=== PATIENT | male | born 1975 | race Caucasian/White ===

== ENCOUNTER 2023-11-28 13:20 | Inpatient (IN) | payer OTHER ==
[2023-11-28 13:49] VITALS: BMI 27.9
[2023-11-28] MEDS ORDERED: NALOXONE HCL (KLOXXADO) 8 MG SPRAY NS PRN (13:59)
[2023-11-28] MEDS ORDERED: MAGNESIUM HYDROX 2400MG/30ML ORAL SUSPENSION 30 ML CUP PO PRN (13:59)
[2023-11-28] MEDS ORDERED: DICYCLOMINE HCL 10 MG CAPSULE PO PRN (13:59)
[2023-11-28] MEDS ORDERED: BENZOCAINE/MENTHOL (CHLORASEPTIC ) LOZENGE MM PRN (13:59)
[2023-11-28] MEDS ORDERED: BENZONATATE 200 MG CAPSULE PO PRN (13:59)
[2023-11-28] MEDS ORDERED: LOPERAMIDE HCL 2 MG CAPSULE PO PRN (13:59)
[2023-11-28] MEDS ORDERED: IBUPROFEN 400 MG TABLET (FP) PO PRN (13:59)
[2023-11-28] MEDS ORDERED: POLYETHYLENE GLYCOL (HEALTHYLAX) 3350 17 GM PACKET PO PRN (13:59)
[2023-11-28] MEDS ORDERED: guaiFENesin 600 MG TABLET.ER (FP) PO PRN (13:59)
[2023-11-28] MEDS ORDERED: NALOXONE HCL 0.4 MG/ML VIAL IM PRN (13:59)
[2023-11-28] MEDS ORDERED: chlordiazePOXIDE HCL 25 MG CAPSULE PO PRN (13:59)
[2023-11-28] MEDS ORDERED: MAG HYDROX/AL HYDROX/SIMETH 30 ML UNIT-DOSE CUP PO PRN (13:59)
[2023-11-28] MEDS ORDERED: BISMUTH SUBSALICYLATE 262 MG/15 ML BTL PO PRN (13:59)
[2023-11-28] MEDS ORDERED: ACETAMINOPHEN 325 MG TABLET (FP) PO PRN (13:59)
[2023-11-28] MEDS: ONDANSETRON *ODT* 4 MG TABLET SL PRN (14:05)
[2023-11-28] MEDS ORDERED: chlordiazePOXIDE HCL 25 MG CAPSULE ONE (15:33)
[2023-11-28] MEDS ORDERED: PRENATAL VITAMINS W/ FOLIC ACID TABLET (FP) PO ONE (15:33)
[2023-11-28] MEDS: chlordiazePOXIDE HCL 25 MG CAPSULE PO ONE (15:34)
[2023-11-28] MEDS: NICOTINE 21 MG/24 HOURS TOPICAL PATCH TD SCH (15:34)
[2023-11-28] MEDS ORDERED: NICOTINE 21 MG/24 HOURS TOPICAL PATCH ONE (15:34)
[2023-11-28] MEDS: PRENATAL VITAMINS W/ FOLIC ACID TABLET (FP) PO SCH (15:34)
[2023-11-28] MEDS: hydrOXYzine PAMOATE 25 MG CAPSULE (FP) PO PRN (16:27)
[2023-11-28] MEDS: METOPROLOL TARTRATE 50 MG TABLET (FP) PO ONE ×2 (17:23→19:34)
[2023-11-28] MEDS: chlordiazePOXIDE HCL 25 MG CAPSULE PO SCH (17:23)
[2023-11-28] MEDS: GABAPENTIN 300 MG CAPSULE PO SCH (22:21)
[2023-11-28] MEDS: THIAMINE 100 MG TABLET PO SCH (22:21)
[2023-11-28] MEDS: MELATONIN 5 MG TABLETS PO SCH (22:21)
[2023-11-28] MEDS ORDERED: SENNOSIDES 8.6MG TABLET (FP) PO SCH (22:40)
[2023-11-28] MEDS: SENNOSIDES 8.6MG TABLET (FP) PO SCH ×2 (22:50→23:05)
[2023-11-29] MEDS ORDERED: MULTIVITAMIN PO SCH (10:00)
[2023-11-29] MEDS: POLYETHYLENE GLYCOL (HEALTHYLAX) 3350 17 GM PACKET PO SCH (10:13)
[2023-11-29] MEDS: FLUoxetine HCL 20 MG CAPSULE PO SCH (11:29)
[2023-11-29] MEDS: METHOCARBAMOL 500 MG TABLET PO PRN (13:34)
[2023-11-30] MEDS: chlordiazePOXIDE HCL 25 MG CAPSULE PO SCH (05:59)
[2023-11-30 10:44] LABS: HEMATOCRIT 40.2 % (35.4-49); HEMOGLOBIN 13.5 GM/dL (11.7-16.9); MCH 31.2 pg (25.7-33.7); MCHC 33.6 g/dl (32.0-35.9); MEAN CELL VOLUME 92.9 fl (80-96); MEAN PLT VOLUME 7.3 fl (7.5-11.1); PLATELET COUNT 161 10^3/uL (134-434); RBC 4.32 M/mm3 (4.00-5.60); RDW 14.4 % (11.9-15.9); WHITE BLOOD COUNT 4.4 K/mm3 (4.0-10.0)
[2023-11-30 10:53] LABS: CHLORIDE 104 mmol/L (98-107); SODIUM 138 mmol/L (136-145)
[2023-11-30 11:03] LABS: ALBUMIN 3.2 g/dl (3.4-5.0); ANION GAP 6 mmol/L (4-13); BLOOD UREA NITROGEN 14.7 mg/dL (7-18); CALCIUM 8.8 mg/dL (8.5-10.1); CO2 29 mmol/L (21-32); GLUCOSE,RANDOM 117 mg/dL (74-106)
[2023-11-30 11:06] LABS: SGOT/AST 36 U/L (15-37); SGPT/ALT 40 U/L (13-61)
[2023-11-30 11:07] LABS: CREATININE 0.8 mg/dL (0.55-1.3)
[2023-11-30 11:08] LABS: BILIRUBIN,TOTAL 0.9 mg/dL (0.2-1); TOT PROT 5.9 g/dl (6.4-8.2)
[2023-11-30 11:09] LABS: ALK PHOS 96 U/L (45-117)
[2023-11-30] MEDS: IBUPROFEN 600 MG TABLET (FP) PO PRN (17:19)
[2023-12-01] MEDS ORDERED: chlordiazePOXIDE HCL 10 MG CAPSULE PO PRN
[2023-12-01] MEDS: chlordiazePOXIDE HCL 10 MG CAPSULE PO SCH (06:06)
[2023-12-02] MEDS: chlordiazePOXIDE HCL 10 MG CAPSULE PO SCH (05:34)
[2023-12-02] MEDS: LACTULOSE 20 GM/30 ML UDC (FOR ORAL USE ONLY) PO SCH (13:46)
[2023-12-03] MEDS: chlordiazePOXIDE HCL 10 MG CAPSULE PO ONE (05:43)
[2023-12-03 09:55] VITALS: BP 132/76; PULSE 99; RESP 18; TEMP 96.9
== END 2023-12-03 11:20 | disposition other institution (70) | DRG 775 ==
LOC: YASAS 13:20 → Y6N 14:23
PROVIDERS: ADMIT Allergy & Immunology; ATTEND Surgery
PROC: HZ2ZZZZ Detoxification Services for Substance Abuse Treatment (ICD-10-PCS; principal; 2023-11-28)
DX: F10.230 Alcohol dependence with withdrawal, uncomplicated (principal); F12.20 Cannabis dependence, uncomplicated; F17.210 Nicotine dependence, cigarettes, uncomplicated; F10.280 Alcohol dependence with alcohol-induced anxiety disorder; F10.282 Alcohol dependence with alcohol-induced sleep disorder; F10.24 Alcohol dependence with alcohol-induced mood disorder; F41.1 Generalized anxiety disorder; F32.A Depression, unspecified; F43.10 Post-traumatic stress disorder, unspecified; G62.9 Polyneuropathy, unspecified; I10 Essential (primary) hypertension; M17.0 Bilateral primary osteoarthritis of knee; M19.011 Primary osteoarthritis, right shoulder; M19.012 Primary osteoarthritis, left shoulder; Z62.810 Personal history of physical and sexual abuse in childhood; Z63.8 Other specified problems related to primary support group
CPT/HCPCS: 36415; 80053; 80305; 80307; 82140; 85027; 86780; 93005; 93010; Q0162